=== PATIENT | male | born 1955 | race Caucasian/White ===

== ENCOUNTER → 2017-03-04 | Outpatient (CLI) | payer MEDICARE, OTHER ==
[2017-03-06 09:48] LABS: HEPATITIS A AB TOTAL Negative (Negative)
== END ==
LOC: OD 14:38
PROVIDERS: ATTEND Specialist
DX: G35 Multiple sclerosis (principal)
CPT/HCPCS: 36415; 86708; 86709; 87340

== ENCOUNTER → 2018-08-02 | Outpatient (CLI) | payer MEDICARE, OTHER ==
[2018-08-04 06:38] LABS: HEPATITS B SURFACE ANTIGEN Negative (Negative)
[2018-08-04 09:58] LABS: HEPATITIS B CORE AB IGM Negative (Negative)
[2018-08-07 21:02] LABS: JC VIRUS DNA PCR WHOLE BLD Negative (Negative)
== END ==
LOC: OD 14:33
PROVIDERS: ATTEND Specialist
DX: G35 Multiple sclerosis (principal); Z79.899 Other long term (current) drug therapy
CPT/HCPCS: 36415; 86705; 87340; 87798